=== PATIENT | male | born 1965 | race Caucasian/White ===

== ENCOUNTER 2017-12-23 22:20 | Emergency (ER) | payer MEDICAID ==
[2017-12-23] MEDS ORDERED: FAMOTIDINE 20 MG/NACL 50 ML IV ONE (22:23)
[2017-12-23] MEDS ORDERED: NS 1,000 ML IV ONE ×2 (22:23→22:50)
[2017-12-23 22:42] LABS: PLATELET COUNT 248 10^3/uL (150-400)
--- NOTE | 2017-12-23 22:55 | EDPHY ---
H & P Stated Complaint: Diarrhea and mid abdominal pain onset tonight Time Seen by Provider: 12/23/17 22:23 HPI/ROS: HPI The patient presents with diarrhea which began suddenly at about 4 or 5:00 p.m. Tonight. He has had numerous episodes of watery loose stool. He has had fecal incontinence as well. After his diarrhea started which has been constant, he developed cramping upper abdominal pain which has been intermittent and is mild. He does not have vomiting or fever. He denies any sick contacts and attributes his symptoms to eating too much food last night. He is brought in by ambulance, blood glucose in the field was 170. He was started on IV fluids. He was seen in the emergency department on December 01 for M1 hold. He was cleared from the emergency department. He says because his car is not functional he has been unable to follow up at [facility]. He was seen there in May and has been on [employer] for PTSD. 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 He does not have a cell phone. REVIEW OF SYSTEMS 10 systems were reviewed and negative with the exception of the elements mentioned in the history of present illness. PMHx: PTSD Soc Hx: Lives in his van, no alcohol use PHYSICAL General Appearance: Alert, no distress Eyes: Pupils equal and round no pallor or injection ENT, Mouth: Mucous membranes dry Respiratory: There are no retractions, lungs are clear to auscultation Cardiovascular: Regular rate and rhythm Gastrointestinal: Abdomen is soft and non-tender, no masses, bowel sounds normal Neurological: A&O, moves all extremities Skin: Warm and dry, no rashes Musculoskeletal: Neck is supple non tender Extremities: symmetrical, full range of motion Psychiatric: Patient is oriented X 3, there is no agitation Source: Patient, EMS Exam Limitations: No limitations - Personal History Current Tetanus Diphtheria and Acellular Pertussis (TDAP): No - Medical/Surgical History Hx Asthma: No Hx Chronic Respiratory Disease: No Hx Diabetes: No Hx Cardiac Disease: No Hx Renal Disease: No Hx Cirrhosis: No Hx Alcoholism: No Hx HIV/AIDS: No Hx Splenectomy or Spleen Trauma: No Other PMH: hypothyroid, HTN, depression - Social History Smoking Status: Former smoker Constitutional: Initial Vital Signs Temperature (C) 36.3 C 12/23/17 22:23 Heart Rate 73 12/23/17 22:23 Respiratory Rate 16 12/23/17 22:23 Blood Pressure 132/102 H 12/23/17 22:23 O2 Sat (%) 99 12/23/17 22:23 O2 Delivery Mode Room Air Allergies/Adverse Reactions: No Known Allergies Allergy (Unverified 12/01/17 10:07) Home Medications: Medication Instructions Recorded Kiko 12/23/17 Medical Decision Making Differential Diagnosis: This is a 52-year-old homeless man, living out of his vehicle, history of PTSD verses depression, brought in by ambulance for diarrhea which started over the last several hours. Here, vital signs are normal, he does appear mildly dehydrated. He is having ongoing diarrhea, abdominal exam is benign. Differential diagnosis includes viral gastroenteritis, toxin mediated enterocolitis, less likely diverticulitis. In the emergency department, patient was given IV fluids famotidine. Basic labs were checked. These were relatively normal, though did reveal mild dehydration. He was given several doses of loperamide. On reassessment, he had ongoing diarrhea. Has a benign abdominal exam. He was monitored for several hours. Eventually he felt better. He was allowed to shower and was discharged in the morning. His abdominal exam was benign throughout his stay. He was able to tolerate p.o. Without any difficulty. - Data Points Laboratory Results: Laboratory Results 12/23/17 22:29 12/23/17 22:29 Medications Given: Discontinued Medications Sodium Chloride (Ns) 1,000 mls @ 0 mls/hr IV EDNOW ONE; Wide Open PRN Reason: Protocol Stop: 12/23/17 22:24 Last Admin: 12/23/17 22:31 Dose: 1,000 mls Famotidine/Sodium Chloride (Pepcid 20 Mg (Premix)) 50 mls @ 200 mls/hr IV EDNOW ONE Stop: 12/23/17 22:37 Last Admin: 12/23/17 22:31 Dose: 50 mls Sodium Chloride (Ns) 1,000 mls @ 0 mls/hr IV EDNOW ONE; Wide Open PRN Reason: Protocol Stop: 12/23/17 22:51 Last Admin: 12/24/17 01:45 Dose: 1,000 mls Loperamide HCl ( Imodium) 2 mg PO EDNOW ONE Stop: 12/24/17 01:45 Last Admin: 10/26/18 01:45 Dose: 2 mg Loperamide HCl ( Imodium) 4 mg PO EDNOW ONE Stop: 12/24/17 05:27 Last Admin: 12/24/17 05:33 Dose: 4 mg Departure - Departure Disposition: Home, Routine, Self-Care Clinical Impression: Homelessness Diarrhea Qualifiers: Diarrhea type: unspecified type Qualified Code(s): R19.7 - Diarrhea, unspecified Condition: Good Instructions: Loperamide (By mouth), Acute Diarrhea (ED) Additional Instructions: Please make sure to drink plenty of fluids. You can take loperamide as needed for your diarrhea. Please return to the emergency department if your worse in any way. I do recommend that you follow up with [facility]. [facility] has walk-in appointments for the homeless at the following days/locations. No appointment is needed. Wednesday 8-10 am @ [facility] 11 AM-1 PM @ [facility] Wednesday 8-10:30 AM @ [facility] Wednesday 8-10 AM @ [facility] 2-4 PM @ [facility] Wednesday 8-10 AM @ [facility] Referrals: [facility],. [Clinic] - As per Instructions [facility],. [Clinic] - As per Instructions
[2017-12-24] MEDS ORDERED: LOPERAMIDE HCL 2 MG CAP ONE (01:43)
[2017-12-24] MEDS ORDERED: LOPERAMIDE HCL 2 MG CAP PO ONE ×2 (01:44→05:26)
[2017-12-24 06:09] VITALS: BP 129/77
== END 2017-12-24 06:05 | disposition home or self-care (01) ==
LOC: EDUNIT#
DX: R19.7 Diarrhea, unspecified (principal); E86.0 Dehydration; F43.10 Post-traumatic stress disorder, unspecified; E03.9 Hypothyroidism, unspecified; I10 Essential (primary) hypertension; F32.9 Major depressive disorder, single episode, unspecified; Z87.891 Personal history of nicotine dependence; Z59.0 Homelessness
CPT/HCPCS: 80305; 96365; G0480

== ENCOUNTER 2017-12-24 16:40 | Emergency (ER) | payer MEDICAID ==
--- NOTE | 2017-12-24 17:59 | EDPHY ---
H & P Stated Complaint: Diarrhea Time Seen by Provider: 12/24/17 17:59 - Personal History Current Tetanus/Diphtheria Vaccine: Unsure Current Tetanus Diphtheria and Acellular Pertussis (TDAP): Unsure - Medical/Surgical History Hx Asthma: No Hx Chronic Respiratory Disease: No Hx Diabetes: No Hx Cardiac Disease: No Hx Renal Disease: No Hx Cirrhosis: No Hx Alcoholism: No Hx HIV/AIDS: No Hx Splenectomy or Spleen Trauma: No Other PMH: hypothyroid, HTN, depression - Social History Smoking Status: Former smoker Constitutional: Initial Vital Signs Temperature (C) 36.7 C 12/24/17 16:46 Heart Rate 64 12/24/17 16:46 Respiratory Rate 18 12/24/17 16:46 Blood Pressure 143/96 H 12/24/17 16:46 O2 Sat (%) 98 12/24/17 16:46 O2 Delivery Mode Room Air Allergies/Adverse Reactions: No Known Allergies Allergy (Unverified 12/01/17 10:07) Home Medications: Medication Instructions Recorded Prilosec 12/23/17 Medical Decision Making ED Course/Re-evaluation: CHIEF COMPLAINT: Dirarrhea HISTORY OF PRESENT ILLNESS: The patient presents with diarrhea which began suddenly at about 4 or 5:00 p.m. last night. He has had numerous episodes of watery loose stool. He has had fecal incontinence as well. After his diarrhea started which has been constant , he developed cramping upper abdominal pain which has been intermittent and is mild. He does not have vomiting or fever. He denies any sick contacts and attributes his symptoms to eating too much food last night. He was seen in this emergency department for Dr. Reese and received Imodium. He denies filling his prescription but is still complaining of diarrhea. REVIEW OF SYSTEMS: A comprehensive 10 system review of systems is otherwise negative aside from elements mentioned in the history of present illness and medical decision making. PHYSICAL EXAM: HR, BP, O2 Sat, RR. Temp noted General Appearance: Alert, well hydrated, appropriate, and non-toxic appearing. Head: Atraumatic without scalp tenderness or obvious injury Eyes: Pupils equal, round, reactive to light and accommodation, EOMI, no trauma , no injection. Ears: Clear bilaterally, no perforation, normal landmarks Nose: Atraumatic, no rhinorrhea, clear. Throat: There is no erythema or exudates, no lesions, normal tonsils, mucus membranes moist. Neck: Supple, 2+ carotid upstroke, nontender, no lymphadenopathy. Respiratory: No retractions, no distress, no wheezes, and no accessory muscle use. Lungs are clear to auscultation bilaterally. Cardiovascular: Regular rate and rhythm, no murmurs, rubs, or gallops. Bilateral carotid, radial, dorsalis pedis, and posterior tibial pulses intact. Good capillary refill all extremities. Gastrointestinal: Abdomen is soft, nontender, non-distended, no masses, no rebound, no guarding, no peritoneal signs. Musculoskeletal: Normal active ROM of all extremities, atraumatic. Neurological: Alert, appropriate, and interactive. The patient has normal DTRs and non-focal cranial nerves, motor, sensory, and cerebellar exam. Skin: No rashes, good turgor, no nodules on palpation. Past medical history: Hypertension, hypothyroid, depression Past surgical history: Denies Family history: Denies Social history: Homeless, single, not employed DIAGNOSTICS/PROCEDURES/CRITICAL CARE TIME: Not indicated DIFFERENTIAL DIAGNOSIS: The differential diagnosis for the patient's diarrhea included but was not limited to gastroenteritis, gastritis, appendicitis, and medication side effect. MEDICAL DECISION MAKING: The patient is a 52 y/o male complaining of diarrhea today. He was seen in this emergency department last night, but denies filling his prescriptions. 2mg PO Imodium administered. Return precautions provided; patient is comfortable with this plan. Departure - Departure Disposition: Home, Routine, Self-Care Clinical Impression: Diarrhea Qualifiers: Diarrhea type: unspecified type Qualified Code(s): R19.7 - Diarrhea, unspecified Condition: Good Instructions: Acute Diarrhea (ED) Additional Instructions: Please make sure to drink plenty of fluids. You can take loperamide as needed for your diarrhea. Please return to the emergency department if your worse in any way. I do recommend that you follow up with [facility]. [facility] has walk-in appointments for the homeless at the following days/locations. No appointment is needed. Wednesday 8-10 am @ [facility] 11 AM-1 PM @ [facility] Wednesday 8-10:30 AM @ [facility] Wednesday 8-10 AM @ [facility] 2-4 PM @ [facility] Wednesday 8-10 AM @ [facility] Referrals: [facility],. [Clinic] - As per Instructions Report Scribed for: Dennis Bain Report Scribed by: Maya Carlos Date of Report: 12/24/17 Time of Report: 18:01
[2017-12-24] MEDS ORDERED: LOPERAMIDE HCL 2 MG CAP PO ONE (18:04)
[2017-12-24 18:18] VITALS: BP 139/79
== END 2017-12-24 18:19 | disposition home or self-care (01) ==
LOC: EDUNIT#
DX: R19.7 Diarrhea, unspecified (principal); E03.9 Hypothyroidism, unspecified; I10 Essential (primary) hypertension; F32.9 Major depressive disorder, single episode, unspecified; Z87.891 Personal history of nicotine dependence; Z59.0 Homelessness

== ENCOUNTER 2018-01-17 11:36 | Emergency (ER) | payer MEDICAID, OTHER ==
--- NOTE | 2018-01-17 11:39 | EDPHY ---
H & P Time Seen by Provider: 01/17/18 11:37 HPI/ROS: CHIEF COMPLAINT: "I need food" HISTORY OF PRESENT ILLNESS: Patient was brought in by EMS. He tells me that he is hungry, but has not been able to afford food and just wants us to give him something to eat. He denies abdominal pain or vomiting or diarrhea. No other medical complaints except for his feet are cold and he has some anxiety. Denies numbness or decreased motor sensation or skin changes in his feet, he is wearing good winter boots. Denies suicidal or homicidal ideation or hallucinations. Denies syncope or near syncope or dizziness. REVIEW OF SYSTEMS: Eye: no change in vision ENT: no sore throat Cardiac: no chest pain or syncope Pulmonary: no cough or SOB Abdomen: no vomiting, diarrhea, abdominal pain Musculoskeletal: No back or neck pain, says his feet are cold. Skin: no rash Neuro: no headache Constitutional: no fever : no urinary symptoms A comprehensive 10 point review of systems is otherwise negative aside from elements mentioned in the history of present illness. PAST MEDICAL HISTORY: ED visit dated 12/01, 12/23, 1026 personally reviewed. Includes hypertension, thyroid, depression Social history: Homeless, living out of his car. Tobacco smoker but no cigarette in the last week. No alcohol. General Appearance: Alert and conversant, cooperative. Eyes: No scleral icterus. Pupils equal reactive extraocular motion intact. ENT, Mouth: Mucous membranes are moist. Respiratory: Normal respiratory effort, breath sounds equal, lungs are clear to auscultation. Cardiovascular: Regular rate and rhythm. Gastrointestinal: Abdomen is soft and non tender. Neurological: Alert, face symmetric, normal motor and sensory in extremities. He is ambulatory and able to stand at the side of the bed unassisted and undress himself for the hospital gown. Skin: Patient is overall warm and dry except for his toes which showed me on the left foot. They are little bit cool to the touch but not discolored. Normal perfusion, normal motor and sensory. No blisters. No ecchymosis. No eschar. Musculoskeletal: No peripheral edema. Psychiatric: Not agitated. Appears mildly anxious but able to answer questions appropriately. See HPI. Emergency Department course/MDM: Patient presents with hunger and inability to afford food. He states he just wants me to feed him, denies any gastrointestinal symptoms. He states that he has cold feet but does not appear on examination to have frostbite. No vascular compromise. He appears anxious but does not meet criteria for 72 hr mental health hold. He is seen by case management for resource evaluation. Ambulatory, in no distress out of the emergency department under his own power without assistance and no ataxia. Smoking Status: Former smoker Constitutional: Initial Vital Signs Temperature (C) 36.5 C 01/17/18 11:45 Heart Rate 86 01/17/18 11:45 Respiratory Rate 13 01/17/18 11:45 Blood Pressure 148/104 H 01/17/18 11:45 O2 Sat (%) 95 01/17/18 11:45 O2 Delivery Mode Room Air Allergies/Adverse Reactions: No Known Allergies Allergy (Unverified 12/01/17 10:07) Home Medications: Medication Instructions Recorded [facility] 12/23/17 Departure - Departure Disposition: Home, Routine, Self-Care Clinical Impression: Anxiety Condition: Good Instructions: Anxiety (ED) Additional Instructions: Resources for food etc. as per case management. Referrals: [facility],. [Clinic] - As per Instructions
[2018-01-17 12:26] VITALS: BP 144/102
--- NOTE | 2018-01-17 18:13 | ASMTCMCOM ---
CM Note CM Note Notes: Pt presented to the ED for weakness, "being cold and hungry." This is the pt's 4th ED visit since 12/02/17. Pt's previous ED visits also involved pt being cold and hungry. This CM spoke w/pt and he states he has been sleeping his vehicle but it is not working so he has not followed up w/[facility], [facility] or other resources. This CM provided pt with various homelessness resources including info on community table meals, [employer] food pant[facility], and encouraged him to follow up with [facility] and [facility]. Pt was also provided a [facility] pamphlet. Pt appeared surprised and frustrated that CM or ED staff were not providing him with additional food (pt was provided several crackers, peanut butter and juice). This CM called and spoke w/Kathrine at the [facility] and she states there is a pt w/same birthday but is under [facility]" and that he had an appt this past Spring 2017 but no-showed. This CM offered to schedule pt a follow-up appt at but pt declined. Pt states he knows how to follow up if he wants to. Pt left all of the resource handouts in the room after he was discharged from the ED. CM available for further assistance if needed. Date Signed: 01/17/2018 06:12 PM Electronically Signed By:Mariya Koehler RN
== END 2018-01-17 12:25 | disposition home or self-care (01) ==
LOC: EDUNIT#
DX: F41.9 Anxiety disorder, unspecified (principal); Z59.0 Homelessness